=== PATIENT | male | born 1930 | race Caucasian/White ===

== ENCOUNTER 2017-09-09 12:35 | Emergency (ER) | payer MEDICARE ==
[2017-09-09 13:15] VITALS: TEMP 97.6
[2017-09-09] MEDS ORDERED: Lidocaine 1% (10 ml) Inj INFIL STA (14:08)
[2017-09-09 14:57] LABS: BASO # 0.1 K/uL (0.0-0.2); BASO % 1.3 % (0.0-2.0); EOS # 0.3 K/uL (0.0-0.7); EOS % 5.8 % (0.0-4.0); HEMOGLOBIN 13.3 g/dL (12.0-18.0); LYMPH # 1.7 K/uL (1.0-4.3); LYMPH % 29.7 % (20.0-40.0); MEAN CELL VOLUME 94.2 fl (80.0-94.0); MEAN PLATELET VOLUME 7.1 fl (7.2-11.7); MONO # 0.8 K/uL (0.0-0.8); MONO % 13.5 % (0.0-10.0); NEUT # 2.8 K/uL (1.8-7.0); NEUT % 49.7 % (50.0-75.0); NRBC % 0.2 % (0.0-0.0); RBC 4.16 Mil/uL (4.40-5.90); RED CELL DISTRIBUTION WIDTH 13.4 % (11.5-14.5); WHITE BLOOD COUNT 5.6 K/uL (4.8-10.8)
[2017-09-09 15:02] LABS: ALB/GLOB RATIO 1.1 (1.0-2.1); ALBUMIN 3.9 g/dL (3.5-5.0); ALT/SGPT 34 U/L (21-72); AST/SGOT 33 U/L (17-59); BLOOD UREA NITROGEN 13 mg/dl (9-20); CALCIUM 9.6 mg/dL (8.4-10.2); GFR AFRICAN-AMERICAN > 60; GFR NON-AFRICAN AMERICAN > 60
--- NOTE | 2017-09-09 15:23 | ED PDOC ---
HPI: Skin/Bite Injury Time Seen by Provider: 09/09/17 13:17 Chief Complaint (Nursing): Abnormal Skin Integrity Chief Complaint (Provider): Abscess History Per: Patient History/Exam Limitations: no limitations Onset/Duration Of Symptoms: Days Current Symptoms Are (Timing): Still Present Quality Of Symptoms: Painful, Swollen Additional History Per: Patient Additional Complaint(s): 86yo male, presents to ER for evaluation of an abscess to his left upper thigh area x 2 weeks. He was evaluated by his PMD 4 days ago and was placed on antibiotics with instructions to follow up in the ER for an I&D. Patient states he took 1 dose "of the antibiotics today and presents today stating "it was a good day for me." He denies any fever, chills, discharge from the area. No other complaints. Past Medical History Reviewed: Historical Data, Nursing Documentation, Vital Signs Vital Signs: Last Vital Signs Temp 97.6 F 09/09/17 13:12 Pulse 68 09/09/17 13:12 Resp 18 09/09/17 13:12 BP 158/65 H 09/09/17 13:12 Pulse Ox 99 09/09/17 15:35 - Medical History PMH: Benign Prostatic Hyperplasia, HTN - Surgical History Surgical History: No Surg Hx - Family History Family History: States: No Known Family Hx - Allergies Allergies/Adverse Reactions: Allergies Allergy/AdvReac Type Severity Reaction Status Date / Time No Known Allergies Allergy Verified 09/09/17 13:12 Review of Systems ROS Statement: Except As Marked, All Systems Reviewed And Found Negative Constitutional: Negative for: Fever, Chills Skin: Positive for: Other (abscess to upper left thigh area ) Physical Exam - Reviewed Nursing Documentation Reviewed: Yes Vital Signs Reviewed: Yes - Physical Exam Appears: Positive for: Non-toxic, No Acute Distress Head Exam: Positive for: ATRAUMATIC, NORMAL INSPECTION, NORMOCEPHALIC Skin: Positive for: Normal Color Eye Exam: Positive for: Normal appearance Neck: Positive for: Supple Cardiovascular/Chest: Positive for: Regular Rate, Rhythm Respiratory: Positive for: Normal Breath Sounds Extremity: Positive for: Normal ROM, Other (3x3cm abscess to left upper thigh area, no surrounding erythema noted.). Negative for: Deformity Neurologic/Psych: Positive for: Alert, Oriented. Negative for: Motor/Sensory Deficits - Laboratory Results Result Diagrams: 09/09/17 14:47 06/04/18 14:47 - ECG O2 Sat by Pulse Oximetry: 99 (RA) Pulse Ox Interpretation: Normal Medical Decision Making Medical Decision Making: Impression: Abscess Plan: -- Labs -- I&D of abscess, consult procedure note Labs normal. Scribe Attestation: Documented by Mamta Melvin, acting as a scribe for ISADORA Guo. Provider Attestation: All medical record entries made by the Scribe were at my direction and personally dictated by me. I have reviewed the chart and agree that the record accurately reflects my personal performance of the history, physical exam, medical decision making, and the department course for this patient. I have also personally directed, reviewed, and agree with the discharge instructions and disposition. Disposition - Clinical Impression Clinical Impression: Abscess - Disposition Disposition: Routine/Home Disposition Time: 15:48 Condition: GOOD Additional Instructions: Warm compresses. Follow-up with PMD in 2 days. Continue antibiotics. Instructions: Skin Abscess, Abscess Incision and Drainage Forms: [facility] (Spanish) Print Language: [place] Procedures - Time-Out Type of Procedure: I&D Site of Procedure: Left upper thigh Correct Patient (with visual ID + MR# on ID Band): Yes Correct Procedure: Yes Correct Site Marked: Yes PA/Tech: ISADORA Guo - Incision and Drainage Blade Size: 11 I & D Procedure: betadine prep, sterile drapes applied, sterile dressing applied Progress: Wound cleaned by provider using betadine. 11 blade used and wound incised with a hernandez/pearlescent drainage. Wound cleaned and sterile dressing applied. Patient tolerated procedure well.
[2017-09-09 16:13] VITALS: BP 114/72; PULSE 72; RESP 16; O2SAT 98
== END 2017-09-09 16:22 | disposition home or self-care (01) ==
LOC: H.ER 12:35
DX: L02.416 Cutaneous abscess of left lower limb (principal); I10 Essential (primary) hypertension; N40.0 Benign prostatic hyperplasia without lower urinary tract symptoms